=== PATIENT | male | born 1990 | race Caucasian/White ===

== ENCOUNTER 2017-06-04 22:15 | Emergency (ER) | payer OTHER ==
[2017-06-04 22:26] VITALS: PULSE 70; TEMP 97.9
[2017-06-04] MEDS ORDERED: ONDANSETRON 4 MG/2 ML VIAL IVP ONE (22:53)
[2017-06-04] MEDS ORDERED: NS 1,000 ML IV ONE ×2 (22:55→23:15)
[2017-06-04] MEDS ORDERED: LORazepam 2 MG/ML INJ IVP ONE (23:15)
--- NOTE | 2017-06-04 23:22 | EDPHY ---
H & P Time Seen by Provider: 06/04/17 22:36 HPI/ROS: CHIEF COMPLAINT: Vomiting, diarrhea HISTORY OF PRESENT ILLNESS: 27-year-old male presents to the emergency department by private vehicle with multiple episodes of vomiting that began around noon today. He has vomited at least 8 times. He has had a few episodes of watery diarrhea. He does smoke marijuana daily. He has never had these symptoms in the past. He describes diffuse abdominal pain. No fevers or chills. No chest pain or difficulty breathing. No back pain. No urinary symptoms. No fevers or chills. No foreign travel or known ill contacts. He was seen at urgent care earlier today and was given 2 Zofran ODT TS without relief. He was then given injection of IM Phenergan. He was discharged home with oral Phenergan and he continued to vomit and came to the emergency department for evaluation. REVIEW OF SYSTEMS: Constitutional: No fever, no chills. Eyes: No double or blurry vision. ENT: No sore throat. Respiratory: No cough, no shortness of breath. Cardiac: No chest pain. Gastrointestinal: Abdominal pain, vomiting, diarrhea as above Genitourinary: No dysuria. Musculoskeletal: No neck or back pain. Skin: No rashes. Neurological: No headache. Past Medical/Surgical History: Marijuana use daily Social History: Visiting from [place] Smoking Status: Never smoked Physical Exam: General Appearance: Alert, no distress. Initial blood pressure 150/100 Eyes: Pupils equal and round. Extraocular motions are all intact. ENT: Mouth: Mucous membranes very dry. Respiratory: No wheezing, rhonchi, or rales, lungs are clear to auscultation. Cardiovascular: Regular rate and rhythm. Gastrointestinal: Abdomen is soft. Mild diffuse tenderness with palpation. There is no rebound, guarding or masses noted. No CVA tenderness bilaterally. Neurological: Alert and oriented x 3, cranial nerves II through XII grossly intact Skin: Warm and dry, no rashes. Musculoskeletal: Nontender to palpate along the cervical, thoracic or lumbar spine. Neck is supple. Extremities: Full range of motion and no peripheral edema. Psychiatric: Patient is oriented X 3, there is no agitation. Constitutional: Initial Vital Signs Temperature (C) 36.6 C 06/04/17 22:22 Heart Rate 70 06/04/17 22:22 Respiratory Rate 20 06/04/17 22:22 Blood Pressure 150/100 H 06/04/17 22:22 O2 Sat (%) 98 06/04/17 22:22 O2 Delivery Mode Room Air O2 (L/minute) 2 Allergies/Adverse Reactions: No Known Allergies Allergy (Unverified 06/04/17 22:22) Home Medications: Medication Instructions Recorded Compazine 10mg (*) 06/04/17 Zofran 06/04/17 Medical Decision Making ED Course/Re-evaluation: 27-year-old male presents to the emergency department with nausea, vomiting, diarrhea and abdominal pain. Patient was treated with IV normal saline, and IV Ativan. He was feeling much better. He is comfortable being discharged home. He was tolerating p.o. Fluids. Patient was re-examined. Abdomen is benign. I do not think imaging studies are indicated in this was discussed with the patient who verbalized understanding and agreed. Differential Diagnosis: Including but not limited to gastritis, gastroenteritis, dehydration, electrolyte abnormality, acute appendicitis, GERD, peptic ulcer disease - Data Points Laboratory Results: Laboratory Results 06/04/17 22:40 06/04/17 22:40 Medications Given: Discontinued Medications Sodium Chloride (Ns) 1,000 mls @ 0 mls/hr IV ONCE ONE PRN Reason: Wide Open Stop: 06/04/17 22:56 Last Admin: 06/04/17 22:59 Dose: 1,000 mls Sodium Chloride (Ns) 1,000 mls @ 0 mls/hr IV ONCE ONE PRN Reason: Wide Open Stop: 06/04/17 23:16 Last Admin: 06/04/17 23:19 Dose: 1,000 mls Lorazepam (Ativan Injection) 1 mg IVP EDNOW ONE Stop: 06/04/17 23:16 Last Admin: 06/04/17 23:18 Dose: 1 mg Lorazepam (Ativan 1 Mg Prepack#4) 1 btl TAKEHOME EDNOW ONE Stop: 06/05/17 01:58 Last Admin: 06/05/17 02:03 Dose: 1 btl Ondansetron HCl (Zofran) 4 mg IVP EDNOW ONE Stop: 06/04/17 22:54 Last Admin: 06/04/17 23:20 Dose: Not Given Ondansetron HCl (Zofran Odt 4 Mg Prepack#2) 1 btl TAKEPATRICE SHAYNENOW ONE Stop: 06/05/17 02:04 Last Admin: 06/05/17 02:04 Dose: 1 btl Departure - Departure Disposition: Home, Routine, Self-Care Clinical Impression: Acute gastroenteritis, Dehydration Condition: Good Instructions: Lorazepam (By mouth), Ondansetron (By mouth), Dehydration (ED), Gastroenteritis (ED) Additional Instructions: Clear liquids and slowly advance diet as tolerated. Abdominal Pain: Return to the Emergency Department immediately for increasing pain, fever, vomiting, or if not completely better in 8-12 hours. Referrals: Brinda Strong MD [place] [place] - 1 day, if not improved (Primary care provider medical care evaluation specialist)
[2017-06-04 23:35] LABS: PLATELET COUNT 294 10^3/uL (150-400)
[2017-06-05 01:24] VITALS: BP 152/71; RESP 16; O2SAT 95
[2017-06-05] MEDS ORDERED: ONDANSETRON DISINTEGRATING 4 MG TAB PO ONE (01:57)
[2017-06-05] MEDS ORDERED: LORAZEPAM 1 MG PREPACK#4 BTL TAKEHOME ONE (01:57)
[2017-06-05] MEDS ORDERED: ONDANSETRON 4MG PREPACK#2 BTL TAKEHOME ONE ×2 (01:59→02:03)
== END 2017-06-05 02:08 | disposition home or self-care (01) ==
DX: K52.9 Noninfective gastroenteritis and colitis, unspecified (principal); E86.0 Dehydration
CPT/HCPCS: 96374; J2060; J2405